=== PATIENT | female | born 1980 | race Two or more races ===

== ENCOUNTER 2018-09-22 19:12 | Emergency (ER) | payer MEDICAID ==
[~2018-09-22] VITALS: Ht 157.5 cm; Wt 88.9 kg
[2018-09-22 21:22] VITALS: BP 112/69
== END 2018-09-22 21:26 | disposition home or self-care (01) ==
LOC: ER 19:14
DX: S63.91XA Sprain of unspecified part of right wrist and hand, initial encounter (principal); S09.92XA Unspecified injury of nose, initial encounter; M54.2 Cervicalgia; Z90.49 Acquired absence of other specified parts of digestive tract; W01.198A Fall on same level from slipping, tripping and stumbling with subsequent striking against other object, initial encounter; Y93.89 Activity, other specified; Y92.89 Other specified places as the place of occurrence of the external cause; Y99.8 Other external cause status
CPT/HCPCS: 73130; A4663

== ENCOUNTER 2021-06-08 23:18 | Emergency (ER) | payer SELFPAY ==
[~2021-06-08] VITALS: Ht 157.5 cm; Wt 81.6 kg
--- NOTE | 2021-06-08 23:55 | NUR ---
Dr Trujillo at bedside, MSE in progress.
[2021-06-09 00:22] LABS: HEMATOCRIT 36.9 % (31.2-41.9); MEAN CORPUSCULAR HEMOGLOBIN 31.8 uug (24.7-32.8); MEAN CORPUSCULAR VOLUME 92.7 fL (75.5-95.3); PLATELET COUNT (AUTO) 293 K/uL (179-408)
[2021-06-09 00:23] LABS: CREATININE 0.8 mg/dL (0.6-1.3)
[2021-06-09] MEDS ORDERED: KETOROLAC TROMETHAMINE 60 MG INJ IM ONE ×2 (00:30→00:32)
[2021-06-09 00:35] LABS: BILIRUBIN,DIRECT 0.2 mg/dL (0.0-0.2); BILIRUBIN,TOTAL 0.8 mg/dL (0.2-1.0)
[2021-06-09 00:49] LABS: *BILIRUBIN,URIN NEGATIVE (NEGATIVE); *BLOOD, URINE 2+ (NEGATIVE); *CLARITY,URINE CLOUDY (CLEAR); *COLOR,URINE YELLOW (YELLOW); *KETONES,URINE NEGATIVE (NEGATIVE); *UROBILINOGEN,URINE 0.2 E.U./dl (NORMAL); LEUKOCYTE ESTERASE ,URINE 1+ (NEGATIVE); NITRITE, URINE POSITIVE (NEGATIVE); UGLUCOSE NEGATIVE (NEGATIVE)
[2021-06-09 01:08] LABS: BACTERIA,URINE MANY /HPF (NONE SEEN); SQUAMOUS EPITHELIAL CELL,UR FEW /HPF (NONE SEEN)
[2021-06-09] MEDS ORDERED: CEFTRIAXONE 1 G in IV DEXTROSE 5% 50 ML IV ONE (03:00)
[2021-06-09] MEDS ORDERED: IV NS 1000 ML 1,000 ML IV ONE (03:00)
[2021-06-09] MEDS ORDERED: CEFTRIAXONE /D5W 50ML IVPB **ER PYXIS IV ONE ×2 (03:01→03:14)
[2021-06-09] MEDS ORDERED: CEFP200T14 PO (04:43)
--- NOTE | 2021-06-09 05:08 | NUR ---
Patient discharged to home in stable condition. Written and verbal after care instructions given. Patient verbalizes understanding of instructions. Stressed follow up or return to ER for worsening s/s. pt ambulated with steady gait. denies pain. no SOB. no chest pain. AOx4.
[2021-06-09 05:10] VITALS: BP 110/53
== END 2021-06-09 05:10 | disposition home or self-care (01) ==
LOC: ER 23:18
DX: N10 Acute pyelonephritis (principal); R51.9 Headache, unspecified; Z20.822 Contact with and (suspected) exposure to COVID-19; Z90.49 Acquired absence of other specified parts of digestive tract
CPT/HCPCS: 36415; 80048; 80076; 81001; 84702; 85025; 86403; 87070; 87077; 87086; 87186; 87400; 87426; 96365; 96366; 96372; 99284; J0696; J1885; J7040

== ENCOUNTER 2021-12-19 13:36 | Emergency (ER) | payer MEDICAID ==
[~2021-12-19] VITALS: Ht 157.5 cm; Wt 79.4 kg
[~2021-12-19 13:36] MED LIST: CEFP200T14 PO
[2021-12-19] MEDS ORDERED: ACETAMINOPHEN ES 500 MG TABLET ONE (13:52)
[2021-12-19] MEDS ORDERED: ACETAMINOPHEN 650 MG/20.3 ML LIQUID UDC PO ONE (14:00)
[2021-12-19] MEDS ORDERED: IBUP-1953 PO (15:15)
[2021-12-19] MEDS ORDERED: ACET-2154 PO (15:15)
--- NOTE | 2021-12-19 15:17 | NUR ---
Crutches dispensed. Pt instructed on proper use of crutches. Patient able to demonstrate correct use of crutches.
--- NOTE | 2021-12-19 15:24 | NUR ---
Patient is for discharged to home. Patient is waiting for her spouse to pick her up. Written and verbal after care instructions given to patient. Patient verbalized understanding and compliance of instructions. Stressed follow up with primary doctor and orthopedic doctor or return to ER for worsening s/s.
--- NOTE | 2021-12-19 15:32 | NUR ---
Patient left ER in stable condition.
== END 2021-12-19 15:32 | disposition home or self-care (01) ==
LOC: ER 13:36
DX: S93.401A Sprain of unspecified ligament of right ankle, initial encounter (principal); W10.8XXA Fall (on) (from) other stairs and steps, initial encounter; Y92.89 Other specified places as the place of occurrence of the external cause; Z88.5 Allergy status to narcotic agent
CPT/HCPCS: 73610; 73630; A4663; A9150